=== PATIENT | female | born 1960 | race Caucasian/White ===

== ENCOUNTER → 2021-08-20 10:33 | Outpatient (BNVA) | payer OTHER, SELFPAY | PROVIDERS: Family Provider Nurse Practitioner Family; PCP Nurse Practitioner Family; Visit Provider Nurse Practitioner | DX: M25.579 Pain in unspecified ankle and joints of unspecified foot (principal) | CPT/HCPCS: 73610 ==

== ENCOUNTER 2024-07-08 07:52 | Outpatient (CLI) | payer OTHER, SELFPAY ==
--- NOTE | 2024-07-08 07:55 | CT_ITS ---
WS: [id number] LDCT LUNG CANCER SCREENING TECHNIQUE: Noncontrast CT of the chest with coronal and sagittal reformatted images. CLINICAL INFORMATION: NICOTINE DEPENDENCE COMPARISON: None. DLP: 44.60 mGy.cm DIvol: Mean CTDIvol: 0.70 (mGy) All CT scans at [facility] use at least one of these dose optimization techniques: automat ed exposure control; mA and/or kV adjustment per patient size (includes targeted exams where dose is matched to clinical indication); or iterative reconstruction. FINDINGS: Noncalcified nodule LEFT lower lobe anteriorly measuring 7 mm. This is slightly increased i n size since 2010. Recommend 6-month follow-up. Tiny nodule LEFT upper lobe measuring 4 mm. Normal caliber thoracic aorta. Minimal coronary calcification. Prominent RIGHT peribronchial lymph no de measuring 10 mm may be reactive. No subcarinal lymphadenopathy. Adrenal glands are normal. Splenic granulomas. Normal GE junction. Few tiny low-attenuation lesions i n the liver likely hepatic cysts. CT/CT lung screening [id number] IMPRESSION: 7 mm nodule LEFT lower lobe anteriorly. Recommend 6-month follow-up . LUNG-RADS: 3-Probably Benign FOLLOW UP: 6 Month LDCT
--- NOTE | 2024-07-08 08:05 | MM_ITS ---
WS: [id number] SCREENING DIGITAL BREAST TOMOSYNTHESIS MAMMOGRAM WITH CAD HISTORY: SCREEN COMPARISON: 07/22/2019, 04/23/2018 Bilateral CC and MLO with tomosynthesis and synthetic mammography submitted. Computer aided detection analyzed. Breast composition: There are scattered areas of fibroglandular density. Postbiopsy clip upper outer quadrant LEFT breast. There is a new area of asymmetry seen only on the RIGHT MLO projection above th e nipple which is more prominent than prior studies. There are several calcifications in each breast. Small cluster of calcifications in the posterior lateral RIGHT breast on the CC projection. These ca lcifications become dispersed on the lateral projection. MM/[place] [id number] IMPRESSION: BI-RADS: 0 - Incomplete: Need additional imaging evaluation. FOLLOW UP: Need Additional Imaging RIGHT breast: Spot compression views ( MLO). True ML. Ultrasound to follow if a bnormality persists.
== END 2024-07-08 07:53 | disposition home or self-care (01) ==
LOC: RAD 07:52
PROVIDERS: Family Provider Nurse Practitioner Family; PCP Nurse Practitioner Family; Visit Provider Electrodiagnostic Medicine
DX: Z12.31 Encounter for screening mammogram for malignant neoplasm of breast (principal); Z12.2 Encounter for screening for malignant neoplasm of respiratory organs; R92.323 Mammographic fibroglandular density, bilateral breasts; N64.89 Other specified disorders of breast; R92.1 Mammographic calcification found on diagnostic imaging of breast; R91.8 Other nonspecific abnormal finding of lung field; R59.0 Localized enlarged lymph nodes; D73.89 Other diseases of spleen
CPT/HCPCS: 71271; 77063; 77067

== ENCOUNTER 2024-08-23 10:42 | Outpatient (CLI) | payer OTHER, SELFPAY ==
--- NOTE | 2024-08-23 10:44 | MM_ITS ---
WS: [id number] ADDITIONAL VIEWS RIGHT MAMMOGRAM WITH DIGITAL BREAST TOMOSYNTHESIS. RIGHT BREAST ULTRASOUND HISTORY: ABNORMAL MAMMOGRAM COMPARISON: 07/08/2024, 07/22/2019 RIGHT MAMMOGRAM: Spot compression views and true ML with digital breast tomosynthesis and SM. The asymmetry persists but nearly completely resolves in the upper outer quadrant of the RIGHT breast near 10:00. Ultrasound will be performed of this region. No obvious mass and no calcification. RIGHT BREAST ULTRASOUND 2-D and color Doppler imaging submitted. No solid mass or distortion or shadowing is noted in the upper outer quadrant. There is a tiny cyst a t 9:00 with a maximum diameter of 2 mm. MM/MM diag RT tomosynthesis [id number] IMPRESSION: BI-RADS: 2- Benign FOLLOW UP: 1 Year Follow-up
== END 2024-08-23 10:43 | disposition home or self-care (01) ==
LOC: RAD 10:43
PROVIDERS: Family Provider Nurse Practitioner Family; PCP Nurse Practitioner Family; Visit Provider Electrodiagnostic Medicine
DX: R92.8 Other abnormal and inconclusive findings on diagnostic imaging of breast (principal)
CPT/HCPCS: 76642; 77061; G0279